=== PATIENT | male | born 1960 | race Two or more races ===

== ENCOUNTER 2025-01-14 16:00 | Emergency (ER) | payer MEDICAID, SELFPAY ==
[2025-01-14 16:02] VITALS: BMI 30.8
--- NOTE | 2025-01-14 16:06 | EKG_ITS ---
[facility] Test Date: 2025-01-14 Pat Name: ANISH BISHOP Department: Room: - Gender: Male Coordinator Of Health Services: : 1960 Requested By: ED Temporary Provider Order Number: [id number] Reading MD: ED Temporary Provider Measurements Intervals [place] Rate: 77 P: 51 NE: 176 QRS: -9 QRSD: 98 T: 49 QT: 373 QTc: 423 Interpretive Statements SINUS RHYTHM INCOMPLETE RIGHT BUNDLE BRANCH BLOCK [90+ ms QRS DURATION, TERMINAL R IN V1/V2, 40+ ms S IN I/aVL/V4/V5/V6] No previous ECG available for comparison /store/S0/[id number]/[id number].pdf
[2025-01-14 16:21] VITALS: BP 111/67; PULSE 77; RESP 20; TEMP 37.1; O2SAT 96
--- NOTE | 2025-01-14 16:25 | XR_ITS ---
Examination: PA chest single view Technique: Upright PA chest single view Date and time: January 14, 2025, 1632 hrs. Indications: Chest pain shortness of breath today Findings: No significant cardiac enlargement. No pneumonia or pulmonary edema. Stable pleural thickening along the lateral thoracic richardson compared with September 01, 2011 Intact osseous structures Impression: No active disease
--- NOTE | 2025-01-14 16:29 | PD.EDRME ---
Rapid Medical Screening Exam [facility] Arrival date/time: 01/14/25 16:00 This is a 64-year-old male that comes in to the emergency room with complaints of feeling weak. Patient is also complaining of some shortness of breath. Patient states symptoms started about a week ago. Patient denies any fever, nausea, vomiting, diarrhea, cough and chest pain. Patient also complains of a headache. Patient has a history of diabetes, high blood pressure, hyperlipidemia. Patient also complains of anxiety. I have greeted and performed a focused initial assessment of this patient. Initial appropriate labs ordered at this time. A comprehensive ED assessment and evaluation of the patient and analysis of all test and completion of medical decision making process will be conducted by additional ED provider. Chief Complaint: Anxiety Time Seen by Provider: 01/14/25 16:04 Vital signs: Vital Signs Temperature 98.8 F 01/14/25 16:21 Pulse Rate 77 01/14/25 16:21 Respiratory Rate 20 01/14/25 16:21 Blood Pressure 111/67 01/14/25 16:21 Pulse Oximetry (%) 96 01/14/25 16:21 Oxygen Delivery Method Room Air 01/14/25 16:21
[2025-01-14 16:42] LABS: Collection Type, Urine Voided; RBC,Urine 0 /hpf (0-3); Squamous Epithelial Cell,Urine 0 /hpf (0-5)
[2025-01-14 17:06] LABS: Amorphous Crystals,Urine Present (Absent); Bilirubin,Urine Negative (Negative); Blood,Urine Negative (Negative); Clarity,Urine Turbid (Clear/Hazy); Color,Urine Yellow (Lt Yel-Yel); Culture Indicated,Urine Not Indicated; Glucose, Urine Negative (Negative); Ketones,Urine Negative (Negative); Leukocyte Esterase,Urine Negative (Negative); Nitrite,Urine Negative (Negative); PH,Urine 5.5 (5.0-7.0); Protein,Urine Trace (Neg - Trace); Specific Gravity,Urine 1.030 (1.001-1.035); Urobilinogen,Urine 2.0 mg/dL (0.0-1.0); WBC,Urine 2 /hpf (0-5)
[2025-01-14 17:07] LABS: Basophils # (Auto) 0.1 Thou/mm3 (0.0-0.2); Basophils % (Auto) 2 % (0-2.5); Eosinophils # (Auto) 0.1 Thou/mm3 (0.0-0.5); Eosinophils % (Auto) 2 % (0-10); Hematocrit 43.5 % (41.0-53.0); Hemoglobin 14.8 g/dL (13.5-16.0); Immature Granulocytes Auto 0.03 Thou/mm3 (0.00-0.00); Lymphocytes # (Auto) 2.1 Thou/mm3 (1.0-4.8); Lymphocytes % (Auto) 39 % (10-50); Mean Corpuscular HGB Conc 34.0 g/dl (31.0-37.0); Mean Corpuscular Hemoglobin 29.6 pg (25.0-35.0); Mean Corpuscular Volume 87 fL (80-100); Monocytes # (Auto) 0.4 Thou/mm3 (0.0-0.8); Monocytes % (Auto) 8 % (0-12); Neutrophils # (Auto) 2.6 Thou/mm3 (1.8-7.7); Neutrophils % (Auto) 49 % (37-80); Nucleated Red Blood Cell # 0.00 Thou/mm3 (0.00-0.00); Nucleated Red Blood Cell % 0 /100 WBC (0); Platelet Count 274 Thou/mm3 (140-440); RDW Standard Deviation 42.6 fL (35.1-43.9); Red Blood Count 5.00 Miln/mm3 (4.50-5.90); White Blood Count 5.4 Thou/mm3 (3.8-10.6)
[2025-01-14 17:28] LABS: Alanine Aminotransferase 18 U/L (10-49); Albumin, Serum 4.3 gm/dL (3.4-4.8); Albumin/Globulin Ratio 2.0 (1.2-2.2); Alkaline Phosphatase 76 U/L (46-116); Anion Gap 12 (7-16); Aspartate Amino Transferase 14 U/L (0-34); BUN/Creatinine Ratio 14 Ratio (12-20); Bilirubin,Total 0.4 mg/dL (0.3-1.2); Blood Urea Nitrogen 14 mg/dL (9-23); Calcium 9.6 mg/dL (8.3-10.6); Calcium (Corrected) 9.6 mg/dL (8.5-10.1); Carbon Dioxide 26.3 mMol/L (20.0-31.0); Chloride 104 mMol/L (98-107); Creatinine (Component) 1.0 mg/dL (0.6-1.3); Estimated Creatinine Clearance 86.3 mL/min (>60); Globulin 2.2 gm/dL (2.3-3.5); Glucose 194 mg/dL (74-106); Osmolality,Calculated 288 (275-295); Potassium 3.6 mMol/L (3.4-5.1); Sodium 142 mMol/L (136-145); Total Protein 6.5 gm/dL (5.7-8.2); Troponin I < 0.002 ng/mL (0.0-0.045); eGFR > 60 See Note
[2025-01-14 17:37] LABS: B-Type Natriuretic Peptide 23 pg/mL (0-100)
[2025-01-14] MEDS: ACETAMINOPHEN 500 MG TABLET 1000 MG PO (18:19)
--- NOTE | 2025-01-14 18:24 | EDNOTE_ITS ---
ED Anxiety RME/HPI General Chief Complaint: Anxiety Stated Complaint: ANXIETY/SHORT OF BREATH x 30 DAYS Time Seen by Provider: 01/14/25 16:04 Arrival date/time: 01/14/25 16:00 RME / HPI RME / HPI narrative: 01/14/25 16:00 This is a 64-year-old male that comes in to the emergency room with complaints of feeling weak. Patient is also complaining of some shortness of breath. Patient states symptoms started about a week ago. Patient denies any fever, nausea, vomiting, diarrhea, cough and chest pain. Patient also complains of a headache. Patient has a history of diabetes, high blood pressure, hyperlipidemia. Patient also complains of anxiety. I have greeted and performed a focused initial assessment of this patient. Initial appropriate labs ordered at this time. A comprehensive ED assessment and evaluation of the patient and analysis of all test and completion of medical decision making process will be conducted by additional ED provider. See [facility] for Dr. Cortez's HPI documentation. Related Data Previous Rx's ?Medication ?Instructions ?Recorded alprazolam 0.5 mg tablet (Xanax) 0.5 mg PO BID PRN anx iety #20 tabs 01/14/25 Allergies Allergy/AdvReac Type Severity Reaction Status Date / Time No Known Allergies Allergy Verified 01/14/25 16:05 Review of Systems Review of Systems Systems Reviewed: All systems reviewed, normal except as documented Past Medical History Social History SMOKING STATUS: Never smoker ED Exam Narrative Physical exam: See [facility] for Dr. Cortez's physical exam documentation. Course Quality Measures none Orders Category Date Time Status EKG (ED ONLY) *Do not use* NOW Care 01/14/25 16:06 Completed EKG (ED Only) Stat Exams 01/14/25 16:06 Draft XR chest 1V Stat Exams 01/14/25 16:25 Completed BNP [B-Type Natriuretic Peptide] Stat Lab 01/14/25 16:55 Completed CBC Stat Lab 01/14/25 16:55 Completed Comprehensive Metabolic Panel Stat Lab 01/14/25 16:55 Completed Troponin I Stat Lab 01/14/25 16:55 Completed Urinalysis, C/S if Indicated Stat Lab 01/14/25 16:01 Completed Acetaminophen Tab [Tylenol ES Tab] Med 01/14/25 17:47 Discontinued 1,000 mg PO X1 ONE Vital Signs Vital signs: Vital Signs Temperature 98.8 F 01/14/25 16:21 Pulse Rate 77 01/14/25 16:21 Respiratory Rate 20 01/14/25 16:21 Blood Pressure 111/67 01/14/25 16:21 Pulse Oximetry (%) 96 01/14/25 16:21 Oxygen Delivery Method Room Air 01/14/25 16:21 Anxiety MDM Narrative MDM Narrative: This section includes all my notes and documentations, including HPI, PE, and ED course. Jaime Cortez MD HPI: 64yo male here with possible anxiety for several days. Reports frequent episodes of multiple symptoms. Symptoms can include headache, intense fear, pounding and racing heart, sweating, chills, shaking, trouble breathing, chest pain, stomach pain, nausea, numbness and tingling in the hands and feet and face, confusion, hot flashes, and feeling faint. No other complaints. ROS: All negative except as documented in HPI. Physical Exam: General: Alert and oriented. Appears anxious. Eyes: Conjunctivae and lids clear. PERRL. EOMI. ENT: No nasal congestion. Neck: Supple. Heart: RRR. Lungs: No respiratory distress. Good air movement. No rhonchi, wheezing, rales. Abdomen: Soft and nontender. Normal bowel sounds. No distension. No rebound or guarding. Back: No CVA tenderness. Skin: Warm and dry. Neuro: Alert and oriented X 3. Cranial nerves II to XII grossly normal. No peripheral motor deficits. I reviewed all diagnostic test results. My interpretation of the EKG is sinus rhythm with nonspecific ST-T changes. My interpretation of the chest x-ray is NAD. My review of the CT head report is NAD. Blood and urine tests unremarkable. At this point, diagnoses include: Anxiety Treatment here included: Xanax Significant improvement noted. Recommended more outpatient management. Based on my best medical judgment, made decision no further evaluation or t reatment indicated at this time. Patient understands and agrees to the discharge instructions customized and printed, see below. Discharge instructions from Dr. Cortez: 1. After extensive evaluation, there is no life-threatening condition.? Such as stroke or heart attack. 2. Your symptoms may be due to underlying stress or anxiety or nerves.? This is fairly common. 3. Take Xanax as needed.? Whether this helps or not will be valuable information to your private doctors. 4. See a private doctor on 01/15/2025 for recheck. To make sure there is no serious underlying heart condition, ask to help you get more tests for your heart that cannot be done here in the ER.? Such as Holter Monitor (cardiac monitoring at home from a day to even a month), heart stress test (on treadmill or with medication), echocardiogram (imaging of your heart structures), heart catherization (checking for blockages in your heart arteries), and a referral to see a General Accountant. Ask to review all test results and official radiology reports, to make sure you receive all necessary follow-ups and monitoring. 5. Seek immediate medical care with worsening or with any concerns.?? Jaime Cortez MD Patient data External records reviewed:: [facility] previous records (Per chart review, patient has no previous ED visits or admissions to this facility.) Clinical information provided by:: patient Social determinants that could affect healthcare access:: none Patient has the following chronic illnesses:: DM, HTN, HLD How is presenting disease/condition affected by chronic disease/condition?: uneffected by Evaluation data The following diagnostics were reviewed and interpreted by me:: lab results, radiology exam(s) and EKG tracing(s) (My interpretation of the EKG is: Sinus rhythm (77 bpm) with nonspecific ST-T changes. Jaime Cortez MD) Lab and/or radiology exams considered but not ordered:: none Interpretation Summary: I reviewed all diagnostic test results. My interpretation of the EKG is sinus rhythm with nonspecific ST-T changes. My interpretation of the chest x-ray is NAD. My review of the CT head report is NAD. Blood and urine tests unremarkable. Medications / Prescriptions Medications or Prescriptions considered but not ordered:: none Medication administrations:: Medication Administration History Discontinued Medications Acetaminophen (Acetaminophen 500 Mg Tablet) 1,000 mg PO X1 ONE Stop: 01/14/25 17:48 Last Admin: 01/14/25 18:19 Dose: 1,000 mg Documented By: [facility] none Consultations Consultation(s) initiated? (list below): No Diagnosis Differential diagnosis anxiety: hyperventilation, panic disorder and acute anxiety Most likely diagnosis given after review of the tests above:: Anxiety Admission Indicated Admission indicated?: not indicated Explain why admission is indicated or not indicated:: With significant improvement and no condition needing emergent intervention, there was no indication for admission. Admission Request Was there a request for admission?: No Disposition Plan Disposition Plan: Discharge Discharge Attestation Discharge Attestation: The patient and all family members were given an opportunity to ask questions and understood the discharge instructions. Discharge instructions specifically effects, indications for sooner follow up or return to the emergency department, and the expected course of current diagnosis. Patient condition: Stable Discharge Plan Plan Patient Disposition: HOME (Self Care) Prescriptions/Referrals Prescriptions/Med Rec: New alprazolam [Xanax] 0.5 mg tablet 0.5 mg PO BID PRN (Reason: anxiety) Qty: 20 0RF Referrals: Dorothy Thacker MD [Primary Care Provider, Internal Medicine] - In 1 week Problem List Clinical Impression: Anxiety Patient/Caregiver Discharge Instructions Discharge Activity: activity as tolerated Education Materials: ED Anxiety Reaction Additional Instructions: Discharge instructions from Dr. Cortez: 1. After extensive evaluation, there is no life-threatening condition.? Such as stroke or heart attack. 2. Your symptoms may be due to underlying stress or anxiety or nerves.? This is fairly common. 3. Take Xanax as needed.? Whether this helps or not will be valuable information to your private doctors. 4. See a private doctor on 01/15/2025 for recheck. To make sure there is no serious underlying heart condition, ask to help you get more tests for your heart that cannot be done here in the ER.? Such as Holter Monitor (cardiac monitoring at home from a day to even a month), heart stress test (on treadmill or with medication), echocardiogram (imaging of your heart structures), heart catherization (checking for blockages in your heart arteries), and a referral to see a General Accountant. Ask to review all test results and official radiology reports, to make sure you receive all necessary follow-ups and monitoring. 5. Seek immediate medical care with worsening or with any concerns.?? Instrucciones de kishore del Dr. Cortez: 1. Tras em evaluaci?n exhaustiva, no se observa ninguna afecci?n que ponga en peligro la tatiana, lisa un derrame cerebral o un infarto. 2. Terence s?ntomas pueden deberse a estr?s, ansiedad o nerviosismo subyacentes. [place] es bastante com?n. 3. Simpson Xanax seg?n sea necesario. Si esto le ayuda o no, ser? em informaci?n valiosa para terence m?dicos. 4. Consulte con un m?dico el 09/19/2024 para em nueva revisi?n. Para asegurarse de que no haya em afecci?n card?katey subyacente grave, solicite ayuda para realizar m?s pruebas card?acas que no se pueden realizar en urgencias. [place] un monitor Holter (monitorizaci?n card?katey en casa desde un d?a hasta un mes), em prueba de esfuerzo card?aco (en cinta o con medicaci?n), un ecocardiograma (im?genes de las estructuras card?acas), un cateterismo card?aco (para detectar obstrucciones en las arterias card?acas) y em derivaci?n a un cardi?logo. Solicite la revisi?n de todos los resultados de las pruebas y los informes radiol?gicos oficiales para asegurarse de recibir todo el seguimiento y la monitorizaci?n necesarios. 5. Busque atenci?n m?dica inmediata si presenta empeoramiento o cualquier inquietud. Print Language: Upper Sorbian Stand Alone Forms: Nadege Award Info., Patient Portal Info Letter
--- NOTE | 2025-01-14 18:54 | XR_ITS ---
Examination: CT brain head without contrast. 2-D sagittal coronal reconstructions Date and time of exam:January 14, 2025 1930 hrs. Indications: Onset generalized head pain today CTDI: vol (mGy):55.3 DLP: (mGycm):11 Technique: Multiple CT axial sections of the brain have been obtained, 5 mm slice thickness. Contrast has not been administered. 2-D sagittal, coronal reconstructions have been obtained Low dose protocols were performed. One or more of the following dose reduction techniques were used; automated exposure control, adjustment of the mA and/or KV according to patient size, use of iterative reconstruction technique. Findings: No significant ventricular enlargement. Intra-axial or extra-axial hemorrhage density is not seen. No mass effect or midline shift Basal cisterns are not remarkable. Fourth ventricle is midline. Cranial vault intact. Mild chronic maxillary sinusitis Impression: Negative for acute hemorrhage, mass effect or midline shift Advise clinical correlation and follow-up accordingly
[2025-01-14 20:28] LABS: Magnesium 1.6 mg/dL (1.6-2.6); Troponin I < 0.020 ng/mL (0.0-0.045)
[2025-01-14 21:04] VITALS: BP 116/72; PULSE 76; RESP 16; TEMP 37; O2SAT 98
[2025-01-14 21:19] LABS: Influenza A Ag Negative; Influenza B Ag Negative
== END 2025-01-14 21:05 | disposition home or self-care (01) ==
PROVIDERS: Nurse Practitioner Family; Emergency Provider Emergency Medicine; PCP Student in an Organized Health Care Education/Training Program
DX: F41.9 Anxiety disorder, unspecified (principal); R51.9 Headache, unspecified; E11.9 Type 2 diabetes mellitus without complications; E78.5 Hyperlipidemia, unspecified
CPT/HCPCS: 36415; 70450; 71045; 80053; 81001; 83735; 83880; 84484; 85025; 87400; 87502; 87811; 93005; 99284; A9270

== ENCOUNTER 2025-03-13 07:59 | Emergency (ER) | payer MEDICAID, SELFPAY ==
[2025-03-13 08:13] VITALS: BP 125/75; PULSE 70; RESP 16; TEMP 36.7; O2SAT 97; BMI 29.7
--- NOTE | 2025-03-13 08:23 | EKG_ITS ---
[facility] Test Date: 2025-03-13 Pat Name: Dennis Tran Department: Room: - Gender: Male Correction Worker: : 1960 Requested By: Joe Cartagena (LEGAL SUPPORT SPECIALIST) Order Number: [id number] Reading MD: Joe Cartagena (LEGAL SUPPORT SPECIALIST) Measurements Intervals [place] Rate: 73 P: 58 [place]: 171 QRS: -13 QRSD: 106 T: 30 QT: 388 QTc: 430 Interpretive Statements SINUS RHYTHM LOW QRS VOLTAGE IN PRECORDIAL LEADS [QRS DEFLECTION < 1.0 mV IN CHEST LEADS] INCOMPLETE RIGHT BUNDLE BRANCH BLOCK [90+ ms QRS DURATION, TERMINAL R IN V1/V2, 40+ ms S IN I/aVL/V4/V5/V6] Compared to ECG 01/14/2025 16:19:27 Low QRS voltage now present /store/S0/[id number]/ecg/[id number].pdf
--- NOTE | 2025-03-13 08:24 | PD.EDRME ---
Rapid Medical Screening Exam E Arrival date/time: 03/13/25 07:59 64-year-old male presents the emergency dept today for multiple complaints including constipation and generalized weakness. Chief Complaint: Weakness Vital signs: Vital Signs Temperature 98.1 F 03/13/25 08:13 Pulse Rate 70 03/13/25 08:13 Respiratory Rate 16 03/13/25 08:13 Blood Pressure 125/75 03/13/25 08:13 Pulse Oximetry (%) 97 03/13/25 08:13 Oxygen Delivery Method Room Air 03/13/25 08:13 Vital signs reviewed by provider: Yes Exam: On exam patient appears ill but nontoxic Clinical Impression: Labs and imaging obtained
[2025-03-13 08:58] LABS: Collection Type, Urine Clean Catch; Squamous Epithelial Cell,Urine 0 /hpf (0-5)
[2025-03-13 09:00] LABS: Basophils # (Auto) 0.1 Thou/mm3 (0.0-0.2); Basophils % (Auto) 2 % (0-2.5); Eosinophils # (Auto) 0.1 Thou/mm3 (0.0-0.5); Eosinophils % (Auto) 4 % (0-10); Hematocrit 43.2 % (41.0-53.0); Hemoglobin 14.0 g/dL (13.5-16.0); Immature Granulocytes Auto 0.00 Thou/mm3 (0.00-0.00); Lymphocytes # (Auto) 1.1 Thou/mm3 (1.0-4.8); Lymphocytes % (Auto) 30 % (10-50); Mean Corpuscular HGB Conc 32.4 g/dl (31.0-37.0); Mean Corpuscular Hemoglobin 28.2 pg (25.0-35.0); Mean Corpuscular Volume 87 fL (80-100); Monocytes # (Auto) 0.4 Thou/mm3 (0.0-0.8); Monocytes % (Auto) 10 % (0-12); Neutrophils # (Auto) 2.0 Thou/mm3 (1.8-7.7); Neutrophils % (Auto) 55 % (37-80); Nucleated Red Blood Cell # 0.00 Thou/mm3 (0.00-0.00); Nucleated Red Blood Cell % 0 /100 WBC (0); Platelet Count 273 Thou/mm3 (140-440); RDW Standard Deviation 43.3 fL (35.1-43.9); Red Blood Count 4.96 Miln/mm3 (4.50-5.90); White Blood Count 3.6 Thou/mm3 (3.8-10.6)
[2025-03-13 09:08] LABS: Bilirubin,Urine Negative (Negative); Blood,Urine Negative (Negative); Clarity,Urine Clear (Clear/Hazy); Color,Urine Lt-Yellow (Lt Yel-Yel); Culture Indicated,Urine Not Indicated; Glucose, Urine 4+ (Negative); Ketones,Urine 3+ (Negative); Leukocyte Esterase,Urine Negative (Negative); Nitrite,Urine Negative (Negative); PH,Urine 6.0 (5.0-7.0); Protein,Urine Trace (Neg - Trace); RBC,Urine 1 /hpf (0-3); Specific Gravity,Urine 1.044 (1.001-1.035); Urobilinogen,Urine Negative mg/dL (0.0-1.0); WBC,Urine 1 /hpf (0-5)
[2025-03-13 09:15] LABS: INR 1.0 (0.9-1.3); Partial Thromboplastin Time 28.7 Seconds (22.0-36.0); Prothrombin Time 11.0 Seconds (9.0-12.2)
[2025-03-13 09:48] LABS: Alanine Aminotransferase 12 U/L (10-49); Albumin, Serum 4.6 gm/dL (3.4-4.8); Alkaline Phosphatase 83 U/L (46-116); Anion Gap 11 (7-16); Aspartate Amino Transferase 16 U/L (0-34); BUN/Creatinine Ratio 29 Ratio (12-20); Bilirubin,Total 0.6 mg/dL (0.3-1.2); Blood Urea Nitrogen 23 mg/dL (9-23); Calcium 9.4 mg/dL (8.3-10.6); Calcium (Corrected) 9.4 mg/dL (8.5-10.1); Carbon Dioxide 27.3 mMol/L (20.0-31.0); Chloride 108 mMol/L (98-107); Creatinine (Component) 0.8 mg/dL (0.6-1.3); Estimated Creatinine Clearance 105.9 mL/min (>60); Glucose 153 mg/dL (74-106); Osmolality,Calculated 297 (275-295); Potassium 3.5 mMol/L (3.4-5.1); Sodium 146 mMol/L (136-145); eGFR > 60 See Note
--- NOTE | 2025-03-13 11:34 | EDNOTE_ITS ---
<Statement entered by Yohana Carias MD - 03/24/25 06:33> As co-signing physician, I was present and available for consult prn. I concur with the plan and care as documented by the midlevel provider. ED General RME/HPI General Chief complaint: Weakness Stated complaint: WEAKNESS IN KNEES, CONSTIPATED Time Seen by Provider: 03/13/25 11:29 Arrival date/time: 03/13/25 07:59 CC: Generalized weakness, with constipation HPI patient has not had any bowel movement for 2 days which is raised his concern. The patient denies fever chills nausea vomiting chest pain shortness of breath difficulty breathing patient has a history of anxiety. States he took 2 days of stool softeners and then came to the emergency room he did not contact his primary care doctor. At the time of the exam the patient AnQi anxious but not in any acute distress. RME / HPI RME / HPI narrative: 03/13/25 07:59 64-year-old male presents the emergency dept today for multiple complaints including constipation and generalized weakness. Exam: On exam patient appears ill but nontoxic Impression: Labs and imaging obtained Related Data Previous Rx's ?Medication ?Instructions ?Recorded alprazolam 0.5 mg tablet (Xanax) 0.5 mg PO BID PRN anx iety #20 tabs 01/14/25 polyethylene glycol 3350 17 gram 17 g PO QDAY #30 ea 1 05/14/24 oral powder packet (Miralax) Allergies Allergy/AdvReac Type Severity Reaction Status Date / Time No Known Allergies Allergy Verified 03/13/25 08:02 Review of Systems Review of Systems Narrative Review of Systems: GEN: No fever, no chills, no weight loss EYES: No discharge, no visual changes, no pain HEENT: No ear pain, no congestion, no sore throat PULM: No shortness of breath, no cough, no congestion CV: No chest pain, no dyspnea on exertion, no palpitations GI: No nausea, no vomiting, no diarrhea, no pain, no constipation : No frequency, no urgency, no dysuria MUSC/SKEL: No joint pain, no back pain SKIN: No rash PSYCH: No hallucinations, no depression HEME/LYMPH: No easy bleeding or bruising tendencies NEURO: No weakness, no headache Past Medical History Past Medical History CARDIAC: Negative Congestive Heart Failure RESPIRATORY: Negative Chronic Obstructive Pulmonary Disease (COPD) GENITOURINARY: Negative Renal Disease ENDOCRINE: Negative Diabetes Mellitus Type 1 or Diabetes Mellitus Type 2 Social History SMOKING STATUS: Never smoker ED Exam Narrative Physical exam: [General: Obese not in cot no acute distress Head normocephalic HEENT: Within acceptable limits Neck is supple nontender Chest equal chest rise nontender to palpation Respiratory: Clear to auscultation no wheezes crackles or rubs CV: Rate rhythm is regular no murmurs rubs or clicks Abdomen is distended secondary to body habitus soft nontender no masses positive bowel sounds all 4 quadrants GI: Rectum, patient has good rectal tone no fissures, or hemorrhoids. Back: No CVA tenderness no spinous process tenderness from cervical spine thoracic and lumbar spine Skin: Intact no petechiae rash induration ulceration or crepitus Extremities: Moving all extremity against resistance cap refill less than 2 seconds neurosensory intact Neuro: Awake alert oriented x3 Glascow coma 15 no focal deficits] Course Quality Measures none Orders Category Date Time Status EKG (ED ONLY) *Do not use* NOW Care 03/13/25 08:23 Completed Enema Administration NOW Care 03/13/25 13:26 Completed EKG (ED Only) Stat Exams 03/13/25 08:23 Draft CBC Stat Lab 03/13/25 08:56 Completed Comprehensive Metabolic Panel Stat Lab 03/13/25 08:56 Completed Partial Thromboplastin Time Stat Lab 03/13/25 08:56 Completed Prothrombin Time with INR Stat Lab 03/13/25 08:56 Completed Troponin I Stat Lab 03/13/25 08:56 Completed Urinalysis, C/S if Indicated Stat Lab 03/13/25 08:50 Completed Vital Signs Vital signs: Vital Signs Temperature 98.1 F 03/13/25 08:13 Pulse Rate 70 03/13/25 08:13 Respiratory Rate 16 03/13/25 08:13 Blood Pressure 125/75 03/13/25 08:13 Pulse Oximetry (%) 97 03/13/25 08:13 Oxygen Delivery Method Room Air 03/13/25 08:13 Discharge Plan Plan Patient Disposition: HOME (Self Care) Patient condition on transfer: Stable Prescriptions/Referrals Prescriptions/Med Rec: New polyethylene glycol 3350 [Miralax] 17 gram powder in packet 17 g PO QDAY Qty: 30 0RF No Action alprazolam [Xanax] 0.5 mg tablet 0.5 mg PO BID PRN (Reason: anxiety) Qty: 20 0RF Referrals: Charles Barton MD [Primary Care Provider, Family Practice] - In 1 week Problem List Clinical Impression: Constipation, Weakness Patient/Caregiver Discharge Instructions Education Materials: ED Constipation (Adult), ED Weakness (Uncertain Cause) Additional Instructions: Follow-up with your primary care doctor Print Language: Kyrgyz Stand Alone Forms: Nadege Award Info., Patient Portal Info Letter PA/SAUTE CHEF Supervising Physician PA/SAUTE CHEF Supervising Physician: Lance Eason ENP [facility] Clinical Information Provided by: patient and family Medical Records reviewed [facility] Meds/Rx considered, not ordered None Labs/Rad/Tests considered, not ordered None Chronic Illness/Social Conditions Explain: Anxiety EKG Interpretation EKG #1: EKG Interpretation: EKG performed at 0 823 shows a ventricular rate of 73 MI interval 171 QRS of 106 QTc of 415 this is sinus rhythm Labs Labs: interpreted by sd Lab(s) Interpretation(s): CBC shows no acute leukocytosis anemia thrombocytopenia CMP shows a sodium 146 chloride of 108. Glucose of 153 no transaminitis T. bili elevation. Urine is high spec graph glucose of 4+3: Ketones of 3+. No signs of infection.
[2025-03-13 11:49] LABS: Troponin I < 0.020 ng/mL (0.0-0.045)
--- NOTE | 2025-03-13 14:05 | PC.NURSE ---
Resuming pt care to relieve primary RN for lunch break. Pt awake, alert and oriented.
[2025-03-13 14:15] LABS: Albumin/Globulin Ratio 1.9 (1.2-2.2); Globulin 2.4 gm/dL (2.3-3.5); Total Protein 7.0 gm/dL (5.7-8.2)
[2025-03-13 16:31] VITALS: BP 137/78; PULSE 66; RESP 16; O2SAT 98
== END 2025-03-13 16:34 | disposition home or self-care (01) ==
PROVIDERS: Nurse Practitioner Primary Care; Emergency Provider Emergency Medicine; PCP Family Medicine
DX: K59.00 Constipation, unspecified (principal); R53.1 Weakness; I45.10 Unspecified right bundle-branch block
CPT/HCPCS: 36415; 80053; 81001; 84484; 85025; 85610; 85730; 93005; 99282